=== PATIENT | male | born 1985 | race African-American/Black ===

== ENCOUNTER 2019-01-09 19:22 | Emergency (ER) | payer SELFPAY ==
[2019-01-09] MEDS ORDERED: Amoxicillin/Potassium Clav 875 MG TAB ONE (19:52)
[2019-01-09] MEDS ORDERED: Acetaminophen/Codeine 30-300mg Tablet ONE (19:52)
== END 2019-01-09 19:54 | disposition home or self-care (01) ==
LOC: NAV ERS 19:22
DX: K08.89 Other specified disorders of teeth and supporting structures (principal); F17.210 Nicotine dependence, cigarettes, uncomplicated
CPT/HCPCS: 99282

== ENCOUNTER 2019-08-03 12:10 | Emergency (ER) | payer SELFPAY | END 2019-08-03 12:40 | disposition home or self-care (01) | LOC: NAV ERS 12:10 | DX: K02.9 Dental caries, unspecified (principal) | CPT/HCPCS: 99281 ==